=== PATIENT | female | born 1980 | race African-American/Black ===

== ENCOUNTER 2017-01-28 14:03 | Emergency (ER) | payer BC ==
[~2017-01-28] VITALS: Ht 162.6 cm; Wt 104.3 kg
[2017-01-28 14:27] VITALS: BP 148/104
[2017-01-28 14:45] LABS: BILIRUBIN,URINE SMALL (NEG); GLUCOSE,URINE NEGATIVE (NEG); NITRITE,URINE NEGATIVE (NEG); PH,URINE 5.5; PROTEIN,URINE 30 mg/dL (NEG-TRACE)
--- NOTE | 2017-01-28 14:55 | PHYS DOC ---
Past Medical History Past Medical History: Asthma, Hypertension Past Surgical History: No Surgical History Additional Past Surgical Histo: D&C Alcohol Use: Occasionally Drug Use: None Adult General Chief Complaint Chief Complaint: SEXUALLY TRANSMITTED DISEASE HPI HPI Patient is a 36 year old female presents to the emergency department stating that her boyfriend called her and thinks that he has a sexual transmitted infection. He stated to her that he has having penile drainage and feels that she needed to go get checked. States that she is currently on her menstrual cycle. Patient denies any vaginal discharge denies any abdominal pain or discomfort no nausea no vomiting. Does state she sexually active and was sexually active with another gentleman in November before she came in contact with her current boyfriend. Review of Systems Review of Systems Constitutional: Denies fever or chills [] Eyes: Denies change in visual acuity, redness, or eye pain [] HENT: Denies nasal congestion or sore throat [] Respiratory: Denies cough or shortness of breath [] Cardiovascular: No additional information not addressed in HPI [] GI: Denies abdominal pain, nausea, vomiting, bloody stools or diarrhea [] : Denies dysuria or hematuria [] Musculoskeletal: Denies back pain or joint pain [] Integument: Denies rash or skin lesions [] Neurologic: Denies headache, focal weakness or sensory changes [] Endocrine: Denies polyuria or polydipsia [] Patient states I'm here to be checked for sexual transmitted infection. Current Medications Current Medications Current Medications Medications (Trade) Dose Ordered Sig/Tomás Start Time Stop Time Status Last Admin Dose Admin Azithromycin (Zithromax) 1,000 mg 1X ONCE 01/28/17 15:00 01/28/17 15:01 DC 01/28/17 15:09 1,000 MG Ceftriaxone Sodium (Rocephin Im) 250 mg 1X ONCE 01/28/17 15:00 01/28/17 15:01 DC 01/28/17 15:09 250 MG Metronidazole (Flagyl) 2,000 mg 1X ONCE 01/28/17 15:00 01/28/17 15:01 DC 01/28/17 15:09 2,000 MG Allergies Allergies Allergies Coded Allergies Type Severity Reaction Last Updated Verified No Known Drug Allergies 01/28/17 No Physical Exam Physical Exam Constitutional: Well developed, well nourished, no acute distress, non-toxic appearance. [] HENT: Normocephalic, atraumatic, bilateral external ears normal, oropharynx moist, no oral exudates, nose normal. [] Eyes: PERRLA, EOMI, conjunctiva normal, no discharge. [] Neck: Normal range of motion, no tenderness, supple, no stridor. [] Cardiovascular:Heart rate regular rhythm Lungs & Thorax: no respiratory distress Skin: Warm, dry, no erythema, no rash. [] Back: No tenderness Extremities: No tenderness, no cyanosis, no clubbing, ROM intact, no edema. [] Neurologic: Alert and oriented X 3, normal motor function, normal sensory function, no focal deficits noted. [] Psychologic: Affect normal, judgement normal, mood normal. [] Pelvic exam; speculum exam with blood noted in the vaginal vault. Manual exam patient with no CMT no adnexal tenderness noted. Current Patient Data Vital Signs Vital Signs Date Time Temp Pulse Resp B/P (MAP) Pulse Ox O2 Delivery O2 Flow Rate FiO2 01/28/17 14:27 98.2 88 16 99 Room Air 98.2 Lab Values Laboratory Tests Test 01/28/17 14:20 Urine Collection Type Unknown Urine Color [place] Urine Clarity Cloudy Urine pH 5.5 Urine Specific [place] >=1.030 Urine Protein 30 mg/dL (NEG-TRACE) Urine Glucose (UA) Negative mg/dL (NEG) Urine Ketones (Stick) Negative mg/dL (NEG) Urine Blood Large (NEG) Urine Nitrite Negative (NEG) Urine Bilirubin Small (NEG) Urine Urobilinogen Dipstick 1.0 mg/dL (0.2 mg/dL) Urine Leukocyte Esterase Small (NEG) Urine RBC >40 /HPF (0-2) Urine WBC 1-4 /HPF (0-4) Urine Squamous Epithelial Cells Mod /LPF Urine Bacteria Few /HPF (0-FEW) Urine Mucus Slight /LPF Microbiology 01/28/17 Wet Prep - Final, Complete EKG EKG [] Radiology/Procedures Radiology/Procedures [] Course & Med Decision Making Course & Med Decision Making Pertinent Labs and Imaging studies reviewed. (See chart for details) Shunt was treated for STDs here in the emergency department was provided with Rocephin, Flagyl, and Zithromax. Wet prep was positive for bacterial vaginosis, urine was positive for urinary tract infection. Patient will be discharged home on Macrobid and Flagyl. Recommended no sexual intercourse for the next 2 weeks. Recommended plenty of fluids such as water and cranberry juice, avoid cranberry juice cocktail, carbonated beverages, citrus fruits and alcohol sees her considered irritants to the bladder. Patient agrees with discharge instructions treatment regimens and follow-up recommendations. Since symptoms to return back to the emergency department as been provided. [] Dragon Disclaimer Dragon Disclaimer This electronic medical record was generated, in whole or in part, using a voice recognition dictation system. Departure Departure Impression: Primary Impression: Bacterial vaginosis Additional Impression: Urinary tract infection Disposition: HOME, SELF-CARE Condition: STABLE Referrals: NON,STAFF (PCP) Patient Instructions: Bacterial Vaginosis, [id number], Urinary Tract Infection, [id number] Additional Instructions: You have been treated for sexually transmitted infections. Your test results will be back 3-4 days. You will be notified if they are positive Avoid sexual intercourse for the next 2 weeks. Drink plenty of fluids such as water and cranberry juice. Avoid cranberry juice cocktail, carbonated beverages, caffeine, citrus fruits and alcohol disease are considered irritants to the bladder. Medications as prescribed. Follow-up to primary care physician next 7-10 days. Return back to emergency department for signs and symptoms of become worse. Scripts Metronidazole (FLAGYL) 500 Mg Tablet 1 TAB PO BID, #14 TAB Prov: PAULETTE ALEX APRN 01/28/17 Nitrofurantoin Monohyd/M-Cryst (MACROBID 100 MG CAPSULE) 100 Mg Capsule 1 CAP PO BID, #14 CAP Prov: PAULETTE ALEX APRN 01/28/17 Problem Qualifiers PAULTETE ALEX APRN Jan 28, 2017 14:55
[2017-01-28] MEDS ORDERED: cefTRIAXone IM 250 MG VIAL IM ONE (15:00)
[2017-01-28] MEDS ORDERED: AZITHROMYCIN 250 MG TABLET. PO ONE (15:00)
[2017-01-28] MEDS ORDERED: metroNIDAZOLE 500 MG TABLET PO ONE (15:00)
[2017-01-28 15:18] LABS: BACTERIA,URINE FEW /HPF (0-FEW); RBC,URINE >40 /HPF (0-2); SQUAMOUS EPITHELIAL CELL,UR MOD /LPF
[2017-01-28] MEDS ORDERED: NITR100C62 PO (15:25)
[2017-01-28] MEDS ORDERED: METR500T PO (15:25)
== END 2017-01-28 15:38 | disposition home or self-care (01) ==
LOC: ER 14:03
DX: N76.0 Acute vaginitis (principal); B96.89 Other specified bacterial agents as the cause of diseases classified elsewhere; N39.0 Urinary tract infection, site not specified; J45.909 Unspecified asthma, uncomplicated; I10 Essential (primary) hypertension
CPT/HCPCS: 81001; 81025; 87086; 87491; 87591; 96372; 99284; J0696; Q0111; Q0144

== ENCOUNTER 2017-02-21 17:18 | Emergency (ER) | payer BC ==
[~2017-02-21] VITALS: Ht 162.6 cm; Wt 104.3 kg
[~2017-02-21 17:18] MED LIST: METR500T PO; NITR100C62 PO
[2017-02-21 17:53] VITALS: BP 143/99
--- NOTE | 2017-02-21 18:24 | PHYS DOC ---
Past Medical History Past Medical History: Asthma, Hypertension Past Surgical History: No Surgical History Additional Past Surgical Histo: D&C Alcohol Use: Occasionally Drug Use: None Adult General Chief Complaint Chief Complaint: SEXUALLY TRANSMITTED DISEASE HPI HPI Patient is a 36 year old female with history of hypertension who presents today for STD exposure and requesting treatment. Patient states she was treated for STDs 3 weeks ago and had unprotected sex over the weekend with a partner who turned around and later told patient he tested positive for chlamydia. Patient states the partner got treated over the weekend and had sex with the patient before and after his treatment. Patient is refusing to be tested. Patient denies any symptoms. Review of Systems Review of Systems Constitutional: Denies fever or chills [] Eyes: Denies change in visual acuity, redness, or eye pain [] GI: Denies abdominal pain, nausea, vomiting, bloody stools or diarrhea [] : STD concerns Musculoskeletal: Denies back pain or joint pain [] Integument: Denies rash or skin lesions [] Neurologic: Denies headache, focal weakness or sensory changes [] Endocrine: Denies polyuria or polydipsia [] Current Medications Current Medications Current Medications Medications (Trade) Dose Ordered Sig/Tomás Start Time Stop Time Status Last Admin Dose Admin Azithromycin (Zithromax) 1,000 mg 1X ONCE 02/21/17 18:30 02/21/17 18:31 Ceftriaxone Sodium (Rocephin Im) 250 mg 1X ONCE 02/21/17 18:30 02/21/17 18:31 Metronidazole (Flagyl) 2,000 mg 1X ONCE 02/21/17 18:30 02/21/17 18:31 Allergies Allergies Allergies Coded Allergies Type Severity Reaction Last Updated Verified No Known Drug Allergies 01/28/17 No Physical Exam Physical Exam Constitutional: Well developed, well nourished, no acute distress, non-toxic appearance. [] Abdomen: Bowel sounds normal, soft, no tenderness, no masses, no pulsatile masses. [] Skin: Warm, dry, no erythema, no rash. [] Back: No tenderness, no CVA tenderness. [] Extremities: No tenderness, no cyanosis, no clubbing, ROM intact, no edema. [] Neurologic: Alert and oriented X 3, normal motor function, normal sensory function, no focal deficits noted. [] Psychologic: Affect normal, judgement normal, mood normal. [] Current Patient Data Vital Signs Vital Signs Date Time Temp Pulse Resp B/P (MAP) Pulse Ox O2 Delivery O2 Flow Rate FiO2 02/21/17 17:53 98.5 71 20 99 Room Air 98.5 EKG EKG [] Radiology/Procedures Radiology/Procedures [] Course & Med Decision Making Course & Med Decision Making Pertinent Labs and Imaging studies reviewed. (See chart for details) This is a 36-year-old female patient who presents to the ED to be treated for STD after being reexposed. Patient has refused to be tested. She was given Flagyl Rocephin and azithromycin. I requested patient not to have sex for 2 weeks. I requested her to make sure she contacts all her sex partners and have proof that they were treated before they proceeded to have protected sex again after two weeks. Dragon Disclaimer Dragon Disclaimer This electronic medical record was generated, in whole or in part, using a voice recognition dictation system. Departure Departure Impression: Primary Impression: Concern about STD in female without diagnosis Disposition: 01 HOME, SELF-CARE Condition: STABLE Referrals: NO PCP (PCP) Follow-up with the health Department for STD concerns Patient Instructions: Sexually Transmitted Disease, [id number] Additional Instructions: You were seen for STD concerns. DO NOT HAVE SEX FOR 2 WEEKS. Use protection at all time. You must contact all your partners, let them know you were treated for STDs and ask them to seek treatment too. MANDIE WOODSON APRN Feb 21, 2017 18:24
[2017-02-21] MEDS ORDERED: cefTRIAXone IM 250 MG VIAL IM ONE (18:30)
[2017-02-21] MEDS ORDERED: AZITHROMYCIN 250 MG TABLET. PO ONE (18:30)
[2017-02-21] MEDS ORDERED: metroNIDAZOLE 500 MG TABLET PO ONE (18:30)
== END 2017-02-21 18:47 | disposition home or self-care (01) ==
LOC: ER 17:18
DX: Z20.2 Contact with and (suspected) exposure to infections with a predominantly sexual mode of transmission (principal); J45.909 Unspecified asthma, uncomplicated; I10 Essential (primary) hypertension
CPT/HCPCS: 96372; 99283; J0696; Q0144

== ENCOUNTER 2017-03-25 20:37 | Emergency (ER) | payer BC ==
[~2017-03-25] VITALS: Ht 162.6 cm; Wt 104.3 kg
[2017-03-25 21:07] LABS: BILIRUBIN,URINE NEGATIVE (NEG); GLUCOSE,URINE NEGATIVE (NEG); NITRITE,URINE NEGATIVE (NEG); PH,URINE 5.5; PROTEIN,URINE NEGATIVE (NEG-TRACE); UROBILINOGEN,URINE 0.2 mg/dL (0.2 mg/dL)
[2017-03-25 21:20] LABS: BACTERIA,URINE FEW /HPF (0-FEW); SQUAMOUS EPITHELIAL CELL,UR MANY /LPF
[2017-03-25 21:37] LABS: BASO # 0.1 x10^3/uL (0.0-0.2); BASO % 1 % (0-3); EOS % 3 % (0-3); HEMATOCRIT 40.9 % (36.0-47.0); HEMOGLOBIN 12.7 g/dL (12.0-15.5); LYMPH % 35 % (24-48); MEAN CORPUSCULAR HEMOGLOBIN 23 pg (25-35); MEAN CORPUSCULAR HGB CONC 31 g/dL (31-37); MEAN CORPUSCULAR VOLUME 73 fL (79-100); MONO % 5 % (0-9); NEUT % 56 % (31-73); PLATELET COUNT 276 x10^3/uL (140-400); RED BLOOD COUNT 5.65 x10^6/uL (3.50-5.40); RED CELL DISTRIBUTION WIDTH 16.6 % (11.5-14.5); WHITE BLOOD COUNT 11.3 x10^3/uL (4.0-11.0)
[2017-03-25 21:44] LABS: BARBITURATES NEG (NEG); BENZODIAZEPINES NEG (NEG); CANNABINOIDS NEG (NEG); COCAINE NEG (NEG); METHADONE NEG (NEG); OPIATES NEG (NEG); PHENCYCLIDINE NEG (NEG)
[2017-03-25] MEDS ORDERED: KETOROLAC 15 MG/ML VIAL. IV ONE (21:45)
[2017-03-25] MEDS ORDERED: IV NORMAL SALINE 1000ML BAG 1,000 ML IV SCH (21:45)
[2017-03-25 21:47] LABS: CALCIUM 9.4 mg/dL (8.5-10.1); CREATININE 0.8 mg/dL (0.6-1.0); GFR 98.8; POTASSIUM 3.2 mmol/L (3.5-5.1)
--- NOTE | 2017-03-25 21:51 | ED.ADGEN ---
Past Medical History Past Medical History: Asthma, Hypertension, Sciatica Past Surgical History: No Surgical History Additional Past Surgical Histo: D&C, L. ARM Alcohol Use: Occasionally Drug Use: None Adult General Chief Complaint Chief Complaint: MULTIPLE COMPLAINTS HPI HPI Patient is a 36 year old [woman, history of asthma, anxiety, obesity, hypertension, chronic back pain with sciatica on the right side, who presents to the emergency department with multiple complaints. Patient states that over the past several days she has been experiencing chest tightness, and "a fluttering" in her chest at times, associated with shortness of breath, also low back pain radiating into her right lower extremity. She denies any injuries , any recent travel or surgery, any rashes, any swelling of the extremities, any history of DVT or PE in herself or family members. No weakness, no numbness or tingling. Denies any history of cardiac disease. As previously she was taking medications for anxiety, also for back pain, but states that she is no longer following with the provider who was giving his medications, and is currently looking for a new provider. Has not taken any of her previously scheduled medications in some time. States she used ibuprofen yesterday at home , has not taken anything for pain or other symptoms today. She states that the symptoms in her chest are consistent with previous episodes of anxiety, but denies any inciting factors. States the symptoms have been constant today, greater than yesterday. States she's been eating and drinking well, denies any fevers or chills, denies any injuries, any complaints or GI complaints. She smokes cigarettes "from time to time", denies any drug or alcohol use. Review of Systems Review of Systems Constitutional: Denies fever or chills. [] Eyes: Denies change in visual acuity. [] HENT: Denies nasal congestion or sore throat. [] Respiratory: Denies cough, chest tightness and shortness of breath. Palpitations. Cardiovascular: Chest tightness, no edema. GI: Denies abdominal pain, nausea, vomiting, bloody stools or diarrhea. [] : Denies dysuria. [] Musculoskeletal: Low back pain, radiating to the right lower extremity. No numbness or tingling. Integument: Denies rash. [] Neurologic: Denies headache, focal weakness or sensory changes. [] Endocrine: Denies polyuria or polydipsia. [] Lymphatic: Denies swollen glands. [] Psychiatric: Denies depression or anxiety. [] Current Medications Current Medications Current Medications Medications (Trade) Dose Ordered Sig/Tomás Start Time Stop Time Status Last Admin Dose Admin Acetaminophen (Tylenol) 1,000 mg 1X ONCE 03/25/17 23:00 03/25/17 23:01 DC 03/25/17 22:41 1,000 MG Ketorolac Tromethamine (Toradol) 10 mg 1X ONCE 03/25/17 21:45 03/25/17 21:46 DC 03/25/17 21:36 10 MG Potassium Chloride (KCl Oral Soln) 40 meq 1X ONCE 03/25/17 22:30 03/25/17 22:31 DC 03/25/17 22:19 40 MEQ Sodium Chloride 1,000 ml @ 1,000 mls/hr Q1H 03/25/17 21:45 03/25/17 22:44 DC 03/25/17 21:35 1,000 MLS/HR Allergies Allergies Allergies Coded Allergies Type Severity Reaction Last Updated Verified No Known Drug Allergies 01/28/17 No Physical Exam Physical Exam Constitutional: Well developed, well nourished, no acute distress, non-toxic appearance. [] HENT: Normocephalic, atraumatic, bilateral external ears normal, oropharynx moist, no oral exudates, nose normal. [] Eyes: PERRLA, EOMI, conjunctiva normal, no discharge. [] Neck: Normal range of motion, no tenderness, supple, no stridor. [] Cardiovascular:Heart rate regular rhythm, no murmur, S1, S2, no rubs or gallops. [] Lungs & Thorax: Bilateral breath sounds clear to auscultation, no wheezing, rhonchi, rales. No chest wall crepitus, patient with mild tenderness to palpation across the anterior portion of her chest, no injuries or lesions identified. [] Abdomen: Bowel sounds normal, soft, obese, no tenderness, no rebound, rigidity, no guarding no masses, no pulsatile masses. [] Skin: Warm, dry, no erythema, no rash. [] Back: No midline tenderness, mild tenderness all patient throughout the paraspinal muscles and right-sided piriformis, no lesions or abnormality is identified, no CVA tenderness. [] Extremities: No tenderness, no cyanosis, no clubbing, ROM intact, no edema. [ Negative Homans sign.] Neurologic: Alert and oriented X 3, normal motor function, normal sensory function, no focal deficits noted. [] Psychologic: Affect normal, judgement normal, mood normal. [] Current Patient Data Vital Signs Vital Signs Date Time Temp Pulse Resp B/P (MAP) Pulse Ox O2 Delivery O2 Flow Rate FiO2 03/25/17 23:25 69 149/90 (109) 99 Room Air 03/25/17 20:55 97.9 20 97.9 Lab Values Laboratory Tests Test 03/25/17 20:07 03/25/17 20:50 03/25/17 20:54 03/25/17 23:04 POC Urine HCG, Qualitative Hcg negative (Negative) White Blood Count 11.3 x10^3/uL (4.0-11.0) H Red Blood Count 5.65 x10^6/uL (3.50-5.40) H Hemoglobin 12.7 g/dL (12.0-15.5) Hematocrit 40.9 % (36.0-47.0) Mean Corpuscular Volume 73 fL (79-100) L Mean Corpuscular Hemoglobin 23 pg (25-35) L Mean Corpuscular Hemoglobin Concent 31 g/dL (31-37) Red Cell Distribution Width 16.6 % (11.5-14.5) H Platelet Count 276 x10^3/uL (140-400) Neutrophils (%) (Auto) 56 % (31-73) Lymphocytes (%) (Auto) 35 % (24-48) Monocytes (%) (Auto) 5 % (0-9) Eosinophils (%) (Auto) 3 % (0-3) Basophils (%) (Auto) 1 % (0-3) Neutrophils # (Auto) 6.4 x10^3uL (1.8-7.7) Lymphocytes # (Auto) 4.0 x10^3/uL (1.0-4.8) Monocytes # (Auto) 0.6 x10^3/uL (0.0-1.1) Eosinophils # (Auto) 0.3 x10^3/uL (0.0-0.7) Basophils # (Auto) 0.1 x10^3/uL (0.0-0.2) Platelet Estimate Adequate (ADEQUATE) Hypochromasia Slight Microcytosis Slight Sodium Level 142 mmol/L (136-145) Potassium Level 3.2 mmol/L (3.5-5.1) L Chloride Level 105 mmol/L (98-107) Carbon Dioxide Level 26 mmol/L (21-32) Anion Gap 11 (6-14) Blood Urea Nitrogen 9 mg/dL (7-20) Creatinine 0.8 mg/dL (0.6-1.0) Estimated GFR (Cockcroft-Gault) 98.8 Glucose Level 81 mg/dL (70-99) Calcium Level 9.4 mg/dL (8.5-10.1) Total Bilirubin 0.4 mg/dL (0.2-1.0) Direct Bilirubin 0.1 mg/dL (0.0-0.2) Aspartate Amino Transferase (AST) 12 U/L (15-37) L Alanine Aminotransferase (ALT) 9 U/L (14-59) L Alkaline Phosphatase 73 U/L (46-116) Troponin I Quantitative < 0.017 ng/mL (0.000-0.055) XF-Psf-H-Type Natriuretic Peptide 46 pg/mL (0-124) Total Protein 7.5 g/dL (6.4-8.2) Albumin 3.7 g/dL (3.4-5.0) Urine Collection Type Unknown Urine Color Yellow Urine Clarity Clear Urine pH 5.5 Urine Specific [place] 1.025 Urine Protein Negative mg/dL (NEG-TRACE) Urine Glucose (UA) Negative mg/dL (NEG) Urine Ketones (Stick) Trace mg/dL (NEG) Urine Blood Moderate (NEG) Urine Nitrite Negative (NEG) Urine Bilirubin Negative (NEG) Urine Urobilinogen Dipstick 0.2 mg/dL (0.2 mg/dL) Urine Leukocyte Esterase Small (NEG) Urine RBC 3-5 /HPF (0-2) Urine WBC 1-4 /HPF (0-4) Urine Squamous Epithelial Cells Many /LPF Urine Bacteria Few /HPF (0-FEW) Urine Mucus Marked /LPF Urine Opiates Screen Neg (NEG) Urine Methadone Screen Neg (NEG) Urine Barbiturates Neg (NEG) Urine Phencyclidine Screen Neg (NEG) Urine Amphetamine/Methamphetamine Neg (NEG) Urine Benzodiazepines Screen Neg (NEG) Urine Cocaine Screen Neg (NEG) Urine Cannabinoids Screen Neg (NEG) Urine Ethyl Alcohol Neg (NEG) POC Troponin I 0.00 ng/ml (<0.08) Laboratory Tests 03/25/17 20:50 Laboratory Tests 03/25/17 20:50 EKG EKG EC: Sinus rhythm, heart rate 70 bpm, upright axis, QTC of 420, TX 168, QRS of 78, single PVC noted, no ST elevations or depressions, abnormal ECG, does not meet STEMI criteria. As interpreted by me. [] Radiology/Procedures Radiology/Procedures Chest x-ray: Two-view: Normal cardiopulmonary silhouette, no infiltrates, no effusions, with nurse, no soft tissue or bony abnormality is identified. As interpreted by me. [] Course & Med Decision Making Course & Med Decision Making Pertinent Labs and Imaging studies reviewed. (See chart for details) Patient well-appearing, oxygen saturations 99-100% room air, respiratory rate is 18-22, unlabored, blood pressure is 130s over 80s. PERC score is 0, ECG reveals a single PVC, no other concerning findings identified. Patient received laboratory studies, chest x-ray, noted to have mild hypokalemia with potassium of 3.2, received oral repletion in the ED. Also received IV fluids, was noted have trace ketones in the urine, otherwise no concerning findings identified. Initial troponin was negative, patient's 2 hour troponin was also negative, on reevaluation she states that she is feeling much better at this time. Back pain is improved, as as is headache, and chest tightness. I discussed appropriate hydration with the patient, and potassium rich diet, patient was given ambulatory trial in the ED, ambulating without difficulty without any symptoms, oxygen saturation remains 99-100%, heart rate is in the 60s and 70s and patient states she is ready to be discharged home. Discussed single PVC, follow-up with cardiology if palpitations return, discussed return to the ED for concerning symptoms as stated, and importance of establishing a new primary care provider, use of [id number] medications for patient's chronic back pain. Patient voiced understanding and agreement with plan as stated, discharged home in stable condition with plan and precautions as above. Dragon Disclaimer Dragon Disclaimer This electronic medical record was generated, in whole or in part, using a voice recognition dictation system. Departure Impression: Primary Impression: Palpitations Disposition: HOME, SELF-CARE Condition: IMPROVED JANIYA CASTANO DO Mar 25, 2017 21:51
[2017-03-25 21:53] LABS: ALBUMIN 3.7 g/dL (3.4-5.0); DIRECT BILIRUBIN 0.1 mg/dL (0.0-0.2); TOTAL BILIRUBIN 0.4 mg/dL (0.2-1.0); TOTAL PROTEIN 7.5 g/dL (6.4-8.2)
[2017-03-25 22:19] LABS: HYPOCHROMIA SLIGHT; MICROCYTOSIS SLIGHT; PLT ESTIMATE ADEQUATE (ADEQUATE)
[2017-03-25] MEDS ORDERED: POTASSIUM CHLORIDE 20 MEQ/15 ML ORAL LIQUID. PO ONE (22:30)
[2017-03-25] MEDS ORDERED: ACETAMINOPHEN 500 MG TABLET PO ONE (23:00)
[2017-03-25 23:25] VITALS: BP 149/90
--- NOTE | 2017-03-26 06:05 | EKG ---
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
--- NOTE | 2017-03-26 07:44 | RAD ---
Indication heart palpitations. History of hypertension and gas. PA and lateral views of the chest were obtained and are compared to an examination September 08, 2006. On the frontal view and inspiratory effort is suboptimal. The heart and pulmonary vessels appear within normal limits given the level of inspiratory effort. A consolidated pneumonia is not seen. Significant pleural fluid is not seen and there is no pneumothorax. IMPRESSION: No definite acute process seen in the chest
== END 2017-03-25 23:38 | disposition home or self-care (01) ==
LOC: ER 20:37
DX: R00.2 Palpitations (principal); R07.89 Other chest pain; M54.5 Low back pain; R51 Headache; E87.6 Hypokalemia; J45.909 Unspecified asthma, uncomplicated; I10 Essential (primary) hypertension; F41.9 Anxiety disorder, unspecified; E66.9 Obesity, unspecified; F17.210 Nicotine dependence, cigarettes, uncomplicated; G89.29 Other chronic pain; Z68.39 Body mass index [BMI] 39.0-39.9, adult
CPT/HCPCS: 36415; 71020; 80048; 80076; 80307; 81001; 81025; 83880; 84484; 85007; 85027; 93005; 96361; 96374; 99285; J1885; J7030; G0479

== ENCOUNTER → 2017-04-05 | Outpatient (CLI) | payer BC ==
[2017-03-25 23:25] VITALS: BP 149/90
--- NOTE | 2017-04-05 15:23 | CARD ---
APPROVED REPORT INDICATION Palpitations Chest Pain RISK FACTORS Obesity Smoking PROCEDURE The patient underwent an exercise Stress Test using the Rajinder protocol. Blood pressure, heart rate, a nd EKG were monitored. An Echocardiogram was performed by lawn technician in four stages in quad fashion. At peak stress four se lected images were obtained and placed side by side with resting images for comparison. STRESS ECHO FINDINGS The resting Echocardiogram showed normal left ventricular contractility with an estimated Ejection Fr action of about 55 %. Normal augmentation of myocardial wall segments using a 16 segment model. Test Type: Exercise Stress Nurse/Tech: Vishnu Rankin R.N. Test Indications: Chest Pain Cardiac History and Allergies: see ehr Medications: see ehr Medical History: SR Resting EC Resting Heart Rate: 64 bpm Resting Blood Pressure: 125/67mmHg Pretest Chest Pain: None Nurse/Tech Notes Lungs CTA, S1, S2 Consent: The procedure was explained to the patient in lay terms. Informed consent was witnessed. Richard eout was entered into [employer]. History and Stress Test performed by Vishnu Rankin R.N. Pharm. Details Pharmacologic stress testing was performed using 0.4mg per 5ml of regadenoson given intravenously ove r 7-10 seconds. Stress Symptoms No chest pain or symptoms. POST EXERCISE Reason for Termination: Reached target heart rate, Fatigue, Dyspnea Target HR: Yes Max HR: 168 bpm 91% of Maximum Predicted HR: 185 bpm Exercise duration: 6:02 min:sec, 3 Stage Exercise capacity: 7.0METs Max Blood Pressure: 149/72mmHg Blood Pressure response to exercise: Normal blood pressure response during stress. Chest Pain: No. Arrhythmia: No. ST Change: No. INTERPRETATION Stress EKG Conclusion: No acute changes were noted. STRESS ECG Stress EKG shows no significant changes. Preliminary Notification Critical Value: No <Conclusion> Average excise capacity with 7 mets achieved. Baseline and stress EKG did not show any evidence of ischemia. Normal resting wall motion with ejection fraction of 60%. Stress echocardiogram reveals no regional wall motion abnormalities. Ejection fraction greater than 7 0%. Of note, diagnostic accuracy is mildly diminished due to some images being obtained at less than 85% age-predicted maximum heart rate but otherwise grossly there is no evidence of ischemia.
== END | disposition home or self-care (01) ==
LOC: ECHO 12:48
PROVIDERS: ATTEND Internal Medicine Cardiovascular Disease
DX: E66.9 Obesity, unspecified (principal); R00.2 Palpitations
CPT/HCPCS: 93017; 93350

== ENCOUNTER 2017-04-25 19:44 | Emergency (ER) | payer BC ==
[~2017-04-25] VITALS: Ht 162.6 cm; Wt 103.9 kg
[2017-04-25 20:28] VITALS: BP 129/83
[2017-04-25] MEDS ORDERED: NAPROXEN 500 MG TABLET PO STA (20:40)
[2017-04-25] MEDS ORDERED: CYCLOBENZAPRINE 10 MG TABLET. PO ONE (20:45)
[2017-04-25] MEDS ORDERED: HYDROcodone/APAP 5/325MG 1 TAB TABLET PO ONE (20:45)
[2017-04-25] MEDS ORDERED: TRAM-48 PO (20:47)
[2017-04-25] MEDS ORDERED: METH4TAB2 PO (20:47)
--- NOTE | 2017-04-25 20:48 | PHYS DOC ---
Past Medical History Past Medical History: Asthma, Hypertension, Sciatica Additional Past Medical Histor: BULGING DISC Past Surgical History: Other Additional Past Surgical Histo: D&C, L. ARM Alcohol Use: Occasionally Drug Use: None Adult General Chief Complaint Chief Complaint: LOWER BACK PAIN OR INJURY HPI HPI Patient is a 36 year old female with history of hypertension, asthma, sciatica , bulging disc, who presents today with moderate pain to bilateral low back pain worse on the right side radiating to the right lower extremity. Patient states this pain is chronic but got worse in the last couple days. Denies any trauma. Denies any loss of bowel or bladder function. Review of Systems Review of Systems Constitutional: Denies fever or chills [] GI: Denies abdominal pain, nausea, vomiting, bloody stools or diarrhea [] : Denies dysuria or hematuria [] Musculoskeletal: bilateral low back pain worse on the right side radiating to the right lower extremity Integument: Denies rash or skin lesions [] Neurologic: Denies headache, focal weakness or sensory changes [] Allergies Allergies Allergies Coded Allergies Type Severity Reaction Last Updated Verified No Known Drug Allergies 01/28/17 No Physical Exam Physical Exam Constitutional: Well developed, well nourished, no acute distress, non-toxic appearance. [] Abdomen: Bowel sounds normal, soft, no tenderness, no masses, no pulsatile masses. [] Skin: Warm, dry, no erythema, no rash. [] Back: Diffuse paraspinal muscle tenderness to bilateral low lumbar spine worse on the right SI joint tenderness, no CVA tenderness. [] Extremities: No tenderness, no cyanosis, no clubbing, ROM intact, no edema. [] Neurologic: Alert and oriented X 3, normal motor function, normal sensory function, no focal deficits noted. [] Psychologic: Affect normal, judgement normal, mood normal. [] Current Patient Data Vital Signs Vital Signs Date Time Temp Pulse Resp B/P (MAP) Pulse Ox O2 Delivery O2 Flow Rate FiO2 04/25/17 20:28 97.6 72 18 97 Room Air 97.6 EKG EKG [] Radiology/Procedures Radiology/Procedures [] Course & Med Decision Making Course & Med Decision Making Pertinent Labs and Imaging studies reviewed. (See chart for details) Patient is in the ED with exacerbation of chronic low back pain with sciatica to the right side. She'll be discharged with Robaxin, Medrol Dosepak and ultram. Follow-up with her PCP in 1-2 weeks. We did give her a doctor's list for follow-up. Fernando Disclaimer Fernando Disclaimer This electronic medical record was generated, in whole or in part, using a voice recognition dictation system. Departure Departure Impression: Primary Impression: Back pain Additional Impression: Sciatica of right side Disposition: HOME, SELF-CARE Condition: STABLE Referrals: NO PCP (PCP) follow up in one week with a doctor from the list provided Patient Instructions: Back Pain, Adult, Sciatica with Rehab-SportsMed Additional Instructions: You were seen for exacerbation of chronic back pain with sciatica. Please establish care with one of the doctors from the list provided in follow-up as soon as possible. Take the prescribed medicines as ordered. Do not drive or operate machinery on the Robaxin or Ultram. Scripts Methylprednisolone (MEDROL) 4 Mg Tab.ds.pk 1 PKG PO UD, #1 PKG Prov: MANDIE WOODSON APRN 04/25/17 Methylprednisolone (MEDROL) 4 Mg Tab.ds.pk 1 PKG PO UD, #1 PKG Prov: MANDIE WOODSON APRN 04/25/17 Tramadol Hcl (ULTRAM) 50 Mg Tablet 1 TAB PO Q6HRS, #30 TAB Prov: MANDIE WOODSON APRN 04/25/17 Problem Qualifiers Primary Impression: Back pain Back pain location: low back pain Chronicity: acute Back pain laterality: bilateral Sciatica presence: with sciatica Sciatica laterality: sciatica of right side Qualified Codes: M54.41 - Lumbago with sciatica, right side MANDIE WOODSON APRN Apr 25, 2017 20:48
== END 2017-04-25 21:11 | disposition home or self-care (01) ==
LOC: ER 19:44
DX: M54.41 Lumbago with sciatica, right side (principal); J45.909 Unspecified asthma, uncomplicated; I10 Essential (primary) hypertension; G89.29 Other chronic pain
CPT/HCPCS: 99284

== ENCOUNTER 2017-05-14 08:58 | Emergency (ER) | payer BC ==
[~2017-05-14] VITALS: Ht 162.6 cm; Wt 103.0 kg
[~2017-05-14 08:58] MED LIST changes: +METH4TAB2 PO; +TRAM-48 PO
--- NOTE | 2017-05-14 09:43 | PHYS DOC ---
Past Medical History Past Medical History: Asthma, CVA, High Cholesterol, Hypertension, Sciatica Additional Past Medical Histor: BULGING DISC Past Surgical History: Other Additional Past Surgical Histo: L arm Alcohol Use: None Drug Use: None Adult General Chief Complaint Chief Complaint: ALLERGIC REACTION HPI HPI Patient is a 36 year old female who presents with complaint of hives. Patient states that she started getting symptoms yesterday. Patient states that her symptoms were worse yesterday and have improved slightly today. Patient states that she recently started on methocarbamol for treatment of low back spasms. The patient states that she feels this medication is the cause of her symptoms that she has not been exposed to any thing else different over the past few days. Patient denies any fevers. Patient states that she found hives on her chest, belly, arms, legs yesterday. Patient states that she still has residual hives on her legs today. Patient denies shortness of breath, abdominal pain, nausea, or vomiting. Patient has been taking Benadryl with partial relief in symptoms. Review of Systems Review of Systems Constitutional: Pruritus, denies fever or chills [] Eyes: Denies change in visual acuity, redness, or eye pain [] HENT: Denies nasal congestion or sore throat [] Respiratory: Denies cough or shortness of breath [] Cardiovascular: Denies chest pain[] GI: Denies abdominal pain, nausea, vomiting, bloody stools or diarrhea [] : Denies dysuria or hematuria [] Musculoskeletal: Denies back pain or joint pain [] Integument: Hives[] Neurologic: Denies headache, focal weakness or sensory changes [] Allergies Allergies Allergies Coded Allergies Type Severity Reaction Last Updated Verified methocarbamol Allergy Unknown 05/14/17 Yes Physical Exam Physical Exam Constitutional: Alert, obese, afebrile, no acute distress. [] HENT: Normocephalic, atraumatic, bilateral external ears normal, oropharynx moist, no oral exudates, nose normal. [] Eyes: PERRLA, EOMI, conjunctiva normal, no discharge. [] Neck: Normal range of motion, no tenderness, supple, no stridor. [] Cardiovascular:Heart rate regular rhythm, no murmur [] Lungs & Thorax: Bilateral breath sounds clear to auscultation [] Abdomen: Bowel sounds normal, soft, no tenderness, no masses, no pulsatile masses. [] Skin: Warm, dry, no erythema, urticarial lesions present on bilateral thighs and low back. [] Back: No tenderness, no CVA tenderness. [] Extremities: No tenderness, no cyanosis, no clubbing, ROM intact, no edema. [] Neurologic: Alert and oriented X 3, normal motor function, normal sensory function, no focal deficits noted. [] Current Patient Data Vital Signs Vital Signs Date Time Temp Pulse Resp B/P (MAP) Pulse Ox O2 Delivery O2 Flow Rate FiO2 05/14/17 09:10 98.0 99 21 147/70 (95) 96 Room Air 98.0 EKG EKG Not performed[] Radiology/Procedures Radiology/Procedures Not performed[] Course & Med Decision Making Course & Med Decision Making Pertinent Labs and Imaging studies reviewed. (See chart for details) Patient was given IM Decadron in the emergency department. Advised to continue on Benadryl as needed for itching. Instructed to discontinue use of methocarbamol. Advise follow-up with primary doctor in 3-4 days for reevaluation and return emergency department for any worsening symptoms. Patient was understanding and in agreement with treatment plan. Dragon Disclaimer Dragon Disclaimer This electronic medical record was generated, in whole or in part, using a voice recognition dictation system. Departure Departure Impression: Primary Impression: Urticaria Disposition: 01 HOME, SELF-CARE Condition: IMPROVED Referrals: PETRONA BERMAN MD (PCP) Patient Instructions: Hives Additional Instructions: Discontinue use of methocarbamol as this may be contributing to your hives. Use Benadryl as needed for itching. Follow-up with your primary doctor in 3-4 days for reevaluation. Return to the emergency department for any worsening symptoms. RON GARCÍA MD May 14, 2017 09:43
[2017-05-14] MEDS ORDERED: DEXAMETHASONE SOD PHOS 20 MG/5 ML VIAL. IM ONE (09:45)
[2017-05-14 09:54] VITALS: BP 106/72
== END 2017-05-14 10:00 | disposition home or self-care (01) ==
LOC: ER 08:58
DX: L50.9 Urticaria, unspecified (principal); Z88.8 Allergy status to other drugs, medicaments and biological substances; J45.909 Unspecified asthma, uncomplicated; I10 Essential (primary) hypertension; E78.00 Pure hypercholesterolemia, unspecified; Z86.73 Personal history of transient ischemic attack (TIA), and cerebral infarction without residual deficits
CPT/HCPCS: 96372; 99283; J1100

== ENCOUNTER 2018-06-29 21:19 | Emergency (ER) | payer SELFPAY ==
[~2018-06-29] VITALS: Ht 152.4 cm; Wt 103.0 kg
--- NOTE | 2018-06-29 21:55 | PHYS DOC ---
Past Medical History Past Medical History: Asthma, CVA, High Cholesterol, Hypertension, Sciatica Additional Past Medical Histor: BULGING DISC Past Surgical History: Other Additional Past Surgical Histo: L arm Alcohol Use: None Drug Use: None Adult General Chief Complaint Chief Complaint: CHEST PAIN HPI HPI Patient is a 37 year old female who presents with musculoskeletal type chest pain over the last week. Patient complains of pain over the left pectoralis muscle area which has been present over the last week. Pain is worse when she drives her car and worse with some movements. She did not have any trauma. She does not have a history of coronary artery disease but she does have a prior history of high blood pressure and high cholesterol. She has had no shortness of breath. No fever, cough, chills. No recent travel. No hormone replacement and no family or personal history of thrombotic disease. She came to the emergency department this evening because the pain became more severe and lasted longer. She also endorses a prior history of reflux and has concerns that her symptoms are secondary to reflux as she has not been compliant with recommended antacid therapy. Review of Systems Review of Systems Constitutional: Denies fever or chills Eyes: Denies change in visual acuity HENT: Denies nasal congestion Respiratory: Denies cough or shortness of breath Cardiovascular: No additional information GI: Denies abdominal pain, nausea Musculoskeletal: Denies back pain Integument: Denies rash or skin lesions Neurologic: Denies headache All other systems were reviewed and found to be within normal limits, except as documented in this note. Current Medications Current Medications Current Medications Medications (Trade) Dose Ordered Sig/Tomás Start Time Stop Time Status Last Admin Dose Admin Ketorolac Tromethamine (Toradol 30mg Vial) 30 mg 1X ONCE 06/29/18 22:30 06/29/18 22:31 06/29/18 22:04 30 MG Multi-Ingredient Mouthwash/Gargle (Gi Cocktail) 20 ml 1X ONCE 06/29/18 22:30 06/29/18 22:31 06/29/18 22:03 20 ML Allergies Allergies Allergies Coded Allergies Type Severity Reaction Last Updated Verified methocarbamol Allergy Intermediate 06/29/18 Yes Physical Exam Physical Exam Constitutional: Well developed, well nourished, no acute distress, non-toxic appearance HENT: Normocephalic, atraumatic, bilateral external ears normal, oropharynx moist Eyes: PERRLA, EOMI, conjunctiva normal Neck: Normal range of motion Cardiovascular:Heart rate regular rhythm, no murmur Lungs & Thorax: Bilateral breath sounds clear to auscultation, over the left pectoralis muscle does reproduce the patient's presenting complaint Abdomen: Bowel sounds normal, soft, no tenderness Skin: Warm, dry Extremities: No edema Neurologic: Alert and oriented X 3 Psychologic: Affect normal Current Patient Data Vital Signs Vital Signs Date Time Temp Pulse Resp B/P (MAP) Pulse Ox O2 Delivery O2 Flow Rate FiO2 06/29/18 22:01 77 140/87 (104) 97 Room Air 06/29/18 21:36 97.8 12 97.8 Lab Values Laboratory Tests Test 06/29/18 21:35 D-Dimer (Kavita) < 0.27 ug/mlFEU Troponin I Quantitative < 0.017 ng/mL (0.000-0.055) EKG EKG NSR, No STEMI Interpretation Time: 21:30 Radiology/Procedures Radiology/Procedures No acute findings on PCXR Course & Med Decision Making Course & Med Decision Making Pertinent Labs and Imaging studies reviewed. (See chart for details) Patient is evaluated immediately on arrival to her room. HPI does not seem suspicious for CAD related pain although she has some risk factors including HTN and HLD. Pain for over one week. Will do single troponin. EKG is normal. HEART Score (total): 1 non-suspicious: 0 normal ek age < 45: 0 risk factors: 1 troponin: 0 All results are reviewed. The troponin is not elevated. The d-dimer is normal. The patient has musculoskeletal chest pain. She was given a dose of IV Toradol in the emergency room. She was also given a dose of a GI cocktail. She does feel that her symptoms have improved since coming to the ER. Plan is for discharge home this evening. She will be prescribed ibuprofen and some low-dose Flexeril for any muscle spasm. She is advised not to drive while taking Flexeril. He is also advised to follow-up with her primary care doctor or return to the ER for any new or worsening symptoms. All of her questions are answered prior to discharge. His present to drive her home this evening. Dragon Disclaimer Dragon Disclaimer This electronic medical record was generated, in whole or in part, using a voice recognition dictation system. Departure Departure Disposition: HOME, SELF-CARE Condition: GOOD Referrals: PETRONA BERMAN MD (PCP) Patient Instructions: Chest Pain (Nonspecific), Musculoskeletal Pain Scripts Cyclobenzaprine Hcl (CYCLOBENZAPRINE HCL) 5 Mg Tablet 5 MG PO PRN TID PRN for MUSCLE SPASMS, #15 TAB Prov: NORBERT MOORE DO 06/29/18 Ibuprofen (IBUPROFEN) 800 Mg Tablet 800 MG PO PRN TID PRN for MILD PAIN, #30 TAB take with food or milk to avoid upsetting stomach Prov: NORBERT MOORE DO 06/29/18 NORBERT MOORE DO Jun 29, 2018 21:55
--- NOTE | 2018-06-29 22:01 | RAD ---
AP chest. HISTORY: Chest pain AP view was taken of the chest. Heart is normal in size. There is no pleural effusion. There is no confluent infiltrate. IMPRESSION: 1. No acute chest disease. Electronically signed by: Jordan Cano MD (06/29/2018 9:58 PM) [facility]
[2018-06-29 22:16] VITALS: BP 148/91
[2018-06-29] MEDS ORDERED: IBUP-1060 PO (22:25)
[2018-06-29] MEDS ORDERED: CYCL5TAB PO (22:25)
[2018-06-29] MEDS ORDERED: LIDO:MAALOX 1:1 20 ML SINGLE DOSE. PO ONE (22:30)
[2018-06-29] MEDS ORDERED: KETOROLAC 30 MG/ML VIAL. IV ONE (22:30)
--- NOTE | 2018-06-30 03:57 | EKG ---
[facility] [address] [place] [address] Test Date: 2018-06-29 Test Time: 21:27:16 Pat Name: MANDIE DIAZ Department: Room: Gender: F Auto Service Dispatcher: : 1980 Requested By: NORBERT MOORE Order Number: [id number] Reading MD: Matt Baptiste MD Measurements Intervals [place] Rate: 90 P: -19 MN: 176 QRS: 36 QRSD: 76 T: 31 QT: 354 QTc: 437 Interpretive Statements SINUS RHYTHM Electronically Signed On 07-02-2018 10:04:47 MASS SPEC by Matt Baptiste MD
== END 2018-06-29 22:34 | disposition home or self-care (01) ==
LOC: ER 21:19
DX: R07.89 Other chest pain (principal); E78.00 Pure hypercholesterolemia, unspecified; I10 Essential (primary) hypertension; J45.909 Unspecified asthma, uncomplicated; Z86.73 Personal history of transient ischemic attack (TIA), and cerebral infarction without residual deficits; Z88.8 Allergy status to other drugs, medicaments and biological substances
CPT/HCPCS: 36415; 71045; 84484; 85379; 93005; 96374; 99285; J1885

== ENCOUNTER 2018-08-11 19:31 | Emergency (ER) | payer SELFPAY ==
[~2018-08-11] VITALS: Ht 162.6 cm; Wt 103.0 kg
[~2018-08-11 19:31] MED LIST changes: +CYCL5TAB PO; +IBUP-1060 PO
--- NOTE | 2018-08-11 19:51 | PHYS DOC ---
Past Medical History Past Medical History: Asthma, CVA, High Cholesterol, Hypertension, Sciatica Additional Past Medical Histor: BULGING DISC Past Surgical History: Other Additional Past Surgical Histo: L arm Alcohol Use: None Drug Use: None Adult General Chief Complaint Chief Complaint: CHEST PAIN [facility] HPI Patient is a 37 year old female who presents with chest pain. This has been present for weeks. No worse with exertion. No respirophasic component. There is some sneezing, no coughing. Pain goes into her left shoulder. Patient has been previously worked up for this to include stress testing. Patient reports that it is sharp, moderate to severe in intensity. Patient feels like she cannot breathe when she is laying down. But no worsening of the pain when laying down.[ ] Review of Systems Review of Systems Constitutional: Denies fever or chills [] Eyes: Denies change in visual acuity, redness, or eye pain [] HENT: Denies nasal congestion or sore throat [] Respiratory: Denies cough or shortness of breath [] Cardiovascular: No additional information not addressed in HPI [] GI: Denies abdominal pain, nausea, vomiting, bloody stools or diarrhea [] : Denies dysuria or hematuria [] Musculoskeletal: Denies back pain or joint pain [] Integument: Denies rash or skin lesions [] Neurologic: Denies headache, focal weakness or sensory changes [] Endocrine: Denies polyuria or polydipsia [] All other systems were reviewed and found to be within normal limits, except as documented in this note. Current Medications Current Medications Current Medications Medications (Trade) Dose Ordered Sig/Tomás Start Time Stop Time Status Last Admin Dose Admin Ketorolac Tromethamine (Toradol 15mg Vial) 15 mg 1X ONCE 08/11/18 20:00 08/11/18 20:01 DC 08/11/18 20:16 15 MG Allergies Allergies Allergies Coded Allergies Type Severity Reaction Last Updated Verified methocarbamol Allergy Intermediate 06/29/18 Yes Physical Exam Physical Exam Constitutional: Well developed, well nourished, no acute distress, non-toxic appearance. [] HENT: Normocephalic, atraumatic, bilateral external ears normal, oropharynx moist, no oral exudates, nose normal. [] Eyes: PERRLA, EOMI, conjunctiva normal, no discharge. [] Neck: Normal range of motion, no tenderness, supple, no stridor. [] Cardiovascular:Heart rate regular rhythm, no murmur [] Lungs & Thorax: Bilateral breath sounds clear to auscultation [] Abdomen: Bowel sounds normal, soft, no tenderness, no masses, no pulsatile masses. [] Skin: Warm, dry, no erythema, no rash. [] Back: No tenderness, no CVA tenderness. [] Extremities: No tenderness, no cyanosis, no clubbing, ROM intact, no edema. [] Neurologic: Alert and oriented X 3, normal motor function, normal sensory function, no focal deficits noted. [] Psychologic: Affect normal, judgement normal, mood normal. [] Current Patient Data Vital Signs Vital Signs Date Time Temp Pulse Resp B/P (MAP) Pulse Ox O2 Delivery O2 Flow Rate FiO2 08/11/18 20:30 69 18 124/62 (82) 99 Room Air 08/11/18 19:35 98.6 98.6 Lab Values Laboratory Tests Test 08/11/18 19:55 08/11/18 19:59 08/11/18 20:00 Urine Collection Type Unknown Urine Color Yellow Urine Clarity Cloudy Urine pH 6.0 Urine Specific [place] 1.025 Urine Protein Negative mg/dL (NEG-TRACE) Urine Glucose (UA) Negative mg/dL (NEG) Urine Ketones (Stick) Negative mg/dL (NEG) Urine Blood Large (NEG) Urine Nitrite Negative (NEG) Urine Bilirubin Negative (NEG) Urine Urobilinogen Dipstick 1.0 mg/dL (0.2 mg/dL) Urine Leukocyte Esterase Moderate (NEG) Urine RBC 11-20 /HPF (0-2) Urine WBC 5-10 /HPF (0-4) Urine Squamous Epithelial Cells Many /LPF Urine Bacteria Moderate /HPF (0-FEW) Urine Mucus Marked /LPF Urine Opiates Screen Neg (NEG) Urine Methadone Screen Neg (NEG) Urine Barbiturates Neg (NEG) Urine Phencyclidine Screen Neg (NEG) Urine Amphetamine/Methamphetamine Neg (NEG) Urine Benzodiazepines Screen Neg (NEG) Urine Cocaine Screen Neg (NEG) Urine Cannabinoids Screen Neg (NEG) Urine Ethyl Alcohol Neg (NEG) POC Urine HCG, Qualitative Hcg negative (Negative) White Blood Count 11.7 x10^3/uL (4.0-11.0) H Red Blood Count 5.67 x10^6/uL (3.50-5.40) H Hemoglobin 13.3 g/dL (12.0-15.5) Hematocrit 40.5 % (36.0-47.0) Mean Corpuscular Volume 72 fL (79-100) L Mean Corpuscular Hemoglobin 23 pg (25-35) L Mean Corpuscular Hemoglobin Concent 33 g/dL (31-37) Red Cell Distribution Width 16.1 % (11.5-14.5) H Platelet Count 303 x10^3/uL (140-400) Neutrophils (%) (Auto) 72 % (31-73) Lymphocytes (%) (Auto) 22 % (24-48) L Monocytes (%) (Auto) 5 % (0-9) Eosinophils (%) (Auto) 1 % (0-3) Basophils (%) (Auto) 1 % (0-3) Neutrophils # (Auto) 8.4 x10^3uL (1.8-7.7) H Lymphocytes # (Auto) 2.6 x10^3/uL (1.0-4.8) Monocytes # (Auto) 0.6 x10^3/uL (0.0-1.1) Eosinophils # (Auto) 0.1 x10^3/uL (0.0-0.7) Basophils # (Auto) 0.1 x10^3/uL (0.0-0.2) Platelet Estimate Adequate (ADEQUATE) Hypochromasia Slight Microcytosis Mod Prothrombin Time 13.7 SEC (11.7-14.0) Prothrombin Time INR 1.1 (0.8-1.1) D-Dimer (Kavita) < 0.27 ug/mlFEU Sodium Level 140 mmol/L (136-145) Potassium Level 3.5 mmol/L (3.5-5.1) Chloride Level 104 mmol/L (98-107) Carbon Dioxide Level 25 mmol/L (21-32) Anion Gap 11 (6-14) Blood Urea Nitrogen 12 mg/dL (7-20) Creatinine 0.9 mg/dL (0.6-1.0) Estimated GFR (Cockcroft-Gault) 85.7 BUN/Creatinine Ratio 13 (6-20) Glucose Level 107 mg/dL (70-99) H Calcium Level 9.1 mg/dL (8.5-10.1) Magnesium Level 1.9 mg/dL (1.8-2.4) Total Bilirubin 0.3 mg/dL (0.2-1.0) Aspartate Amino Transferase (AST) 11 U/L (15-37) L Alanine Aminotransferase (ALT) 16 U/L (14-59) Alkaline Phosphatase 64 U/L (46-116) Troponin I Quantitative < 0.017 ng/mL (0.000-0.055) Total Protein 7.7 g/dL (6.4-8.2) Albumin 3.8 g/dL (3.4-5.0) Albumin/Globulin Ratio 1.0 (1.0-1.7) Lipase 66 U/L (73-393) L Thyroid Stimulating Hormone (TSH) 0.836 uIU/mL (0.358-3.74) Laboratory Tests 08/11/18 20:00 Laboratory Tests 08/11/18 20:00 EKG EKG EKG shows a sinus rhythm at 79 bpm, no ST elevation, normal axis, normal QTC, no acute changes from 06/29/2018.[] Radiology/Procedures Radiology/Procedures AP portable chest radiograph 08/11/2018 Clinical History: Chest pain. An AP erect portable digital radiograph of the chest was obtained. Comparison study is dated 06/29/2018. The cardiac and mediastinal silhouettes are within normal limits in size and configuration. No acute pulmonary infiltrate is seen. No pleural effusion or pneumothorax is noted. The osseous structures are unchanged. Impression: No acute abnormality is seen[] Course & Med Decision Making Course & Med Decision Making Pertinent Labs and Imaging studies reviewed. (See chart for details) ED course: Patient arrived, was placed in bed, and tolerated exam well. After the return of the lab and imaging findings, these were discussed with the patient who voiced understanding. All questions were answered. Patient was discharged in improved condition. Medical decision making: There is no evidence of acute coronary syndrome, no evidence of pneumonia, pneumothorax, pulmonary embolism, nor esophageal rupture. We'll attempt outpatient treatment for the discomfort she is experiencing. Along With following up with her primary care team.[] Dragon Disclaimer Dragon Disclaimer This electronic medical record was generated, in whole or in part, using a voice recognition dictation system. Departure Departure Impression: Primary Impression: Chest pain Disposition: HOME, SELF-CARE Condition: GOOD Referrals: PETRONA BERMAN MD (PCP) Follow-up in 2 days. Patient Instructions: Chest Pain (Nonspecific) Additional Instructions: Follow-up with your regular doctor in 2 days. Return to the ER if worsening discomfort or any other concerns. Scripts Gabapentin (GABAPENTIN ) 300 Mg Capsule 300 MG PO TID for NEUROGENIC PAIN, #66 CAP 1 tab on day 1. 1 tab twice a day on day 2. Then 1 tablet 3 times a day for days 3 through 22 Day 23 one tablet twice a day Date 24 one tablet daily Prov: KATELYNN PEDERSON DO 08/11/18 Meloxicam (MELOXICAM) 7.5 Mg Tablet 7.5 MG PO DAILY, #20 TAB Prov: KATELYNN PEDERSON DO 08/11/18 Problem Qualifiers Primary Impression: Chest pain Chest pain type: unspecified Qualified Codes: R07.9 - Chest pain, unspecified KATELYNN PEDERSON DO Aug 11, 2018 19:51
[2018-08-11] MEDS ORDERED: KETOROLAC 15 MG/ML VIAL. IV ONE (20:00)
[2018-08-11 20:06] LABS: BILIRUBIN,URINE NEGATIVE (NEG); CLARITY,URINE CLOUDY; COLOR,URINE YELLOW; NITRITE,URINE NEGATIVE (NEG); PROTEIN,URINE NEGATIVE (NEG-TRACE)
[2018-08-11 20:13] LABS: AMPHETAMINE/METHAMPHETAMINE NEG (NEG); BARBITURATES NEG (NEG); BENZODIAZEPINES NEG (NEG); CANNABINOIDS NEG (NEG); COCAINE NEG (NEG); METHADONE NEG (NEG); OPIATES NEG (NEG); PHENCYCLIDINE NEG (NEG)
[2018-08-11 20:15] LABS: BASO # 0.1 x10^3/uL (0.0-0.2); BASO % 1 % (0-3); EOS # 0.1 x10^3/uL (0.0-0.7); EOS % 1 % (0-3); HEMATOCRIT 40.5 % (36.0-47.0); HEMOGLOBIN 13.3 g/dL (12.0-15.5); LYMPH # 2.6 x10^3/uL (1.0-4.8); LYMPH % 22 % (24-48); MEAN CORPUSCULAR HEMOGLOBIN 23 pg (25-35); MEAN CORPUSCULAR HGB CONC 33 g/dL (31-37); MEAN CORPUSCULAR VOLUME 72 fL (79-100); MONO # 0.6 x10^3/uL (0.0-1.1); MONO % 5 % (0-9); NEUT # 8.4 x10^3uL (1.8-7.7); NEUT % 72 % (31-73); PLATELET COUNT 303 x10^3/uL (140-400); RED BLOOD COUNT 5.67 x10^6/uL (3.50-5.40); RED CELL DISTRIBUTION WIDTH 16.1 % (11.5-14.5); WHITE BLOOD COUNT 11.7 x10^3/uL (4.0-11.0)
[2018-08-11 20:21] LABS: SQUAMOUS EPITHELIAL CELL,UR MANY /LPF
[2018-08-11 20:22] LABS: BACTERIA,URINE MODERATE /HPF (0-FEW)
[2018-08-11 20:25] LABS: PROTHROMBIN TIME PATIENT 13.7 SEC (11.7-14.0)
[2018-08-11 20:27] LABS: CALCIUM 9.1 mg/dL (8.5-10.1); CREATININE 0.9 mg/dL (0.6-1.0); GFR 85.7; POTASSIUM 3.5 mmol/L (3.5-5.1)
[2018-08-11 20:34] LABS: ALBUMIN 3.8 g/dL (3.4-5.0); MAGNESIUM 1.9 mg/dL (1.8-2.4); TOTAL BILIRUBIN 0.3 mg/dL (0.2-1.0); TOTAL PROTEIN 7.7 g/dL (6.4-8.2)
--- NOTE | 2018-08-11 20:34 | RAD ---
AP portable chest radiograph 08/11/2018 Clinical History: Chest pain. An AP erect portable digital radiograph of the chest was obtained. Comparison study is dated 06/29/2018. The cardiac and mediastinal silhouettes are within normal limits in size and configuration. No acute pulmonary infiltrate is seen. No pleural effusion or pneumothorax is noted. The osseous structures are unchanged. Impression: No acute abnormality is seen. Electronically signed by: Benny Pendleton MD (08/11/2018 8:30 PM) [facility]
[2018-08-11 20:35] LABS: PLT ESTIMATE ADEQUATE (ADEQUATE)
[2018-08-11 20:36] LABS: HYPOCHROMIA SLIGHT; MICROCYTOSIS MOD
[2018-08-11 20:43] LABS: D-DIMER < 0.27 ug/mlFEU (0.00-0.50)
[2018-08-11] MEDS ORDERED: GABA300C18 PO (21:03)
[2018-08-11] MEDS ORDERED: MELO7.5T29 PO (21:03)
[2018-08-11 21:30] VITALS: BP 106/66
[2018-08-11] MEDS ORDERED: ACETAMINOPHEN 500 MG TABLET PO ONE (21:45)
--- NOTE | 2018-08-12 06:35 | EKG ---
[facility] [address] [place] [address] Test Date: 2018-08-11 Test Time: 19:38:06 Pat Name: MANDIE DIAZ Department: Room: Gender: F Insecticide Sprayer: : 1980 Requested By: KATELYNN PEDERSON Order Number: [id number] Reading MD: Measurements Intervals [place] Rate: 78 P: 0 SC: 178 QRS: 24 QRSD: 78 T: 17 QT: 364 QTc: 418 Interpretive Statements SINUS RHYTHM NON SPECIFIC T ABNORMALITY NON SPECIFIC ST-T ABNORMALITY (ELEVATION) BORDERLINE ECG No previous ECG available for comparison
== END 2018-08-11 21:30 | disposition home or self-care (01) ==
LOC: ER 19:31
DX: R07.9 Chest pain, unspecified (principal); J45.909 Unspecified asthma, uncomplicated; E78.00 Pure hypercholesterolemia, unspecified; I10 Essential (primary) hypertension; Z86.73 Personal history of transient ischemic attack (TIA), and cerebral infarction without residual deficits; Z88.8 Allergy status to other drugs, medicaments and biological substances
CPT/HCPCS: 36415; 71045; 80053; 80307; 81001; 81025; 83690; 83735; 84443; 84484; 85025; 85379; 85610; 87086; 93005; 96374; 99284; J1885